=== PATIENT | male | born 1955 | race Caucasian/White ===

== ENCOUNTER 2017-04-06 18:15 | Emergency (ER) | payer OTHER ==
[2017-04-06] MEDS ORDERED: NITRO-BID 2% UD PACKETS TOP ONE (18:21)
--- NOTE | 2017-04-06 18:28 | ERPHSYRPT ---
- History of Present Illness Time Seen by Provider: 04/06/17 18:21 Historian: patient, EMS (gave 4 baby [facility] [employer]) Physician History: CC: chest pain Hx: 61 y/o patient of Dr Vinson with chest pain, aching and squeezing in left chest radiating to the left arm which started at work in heat this afternoon. He took 3NTG and then felt dizzy. EMS was called and gave asa. He had chest pain for the first time last week saw Dr Vinson, and is scheduled for cardiac evaluation per Dr Schaefer next week. No hx of heart disease. He has hx of high chol and strong fam hx of CAD. Pain now mostly gone. No recent bleeding. No viagra or sexual medication. Timing/Duration: today Severity of Pain-Max: moderate Severity of Pain-Current: moderate Nitro Today/Relief: 0.4 mg x 3, provided at home Aspirin Treatment Today: 81 mg x 4, provided by EMS Allergies/Adverse Reactions: latex Allergy (Verified 04/06/17 18:27) peanut Allergy (Verified 04/06/17 18:27) amoxicillin Adverse Reaction (Verified 04/06/17 18:27) Home Medications: Isosorbide Mononitrate 30 mg [Imdur 30 MG] 30 mg PO DAILY 04/06/17 [History ] Levothyroxine Sodium [Synthroid] 137 mcg PO DAILY 04/06/17 [History] Nitroglycerin 12 gm TL UD 04/06/17 [History] - Review of Systems Constitutional: No Symptoms Eyes: No Symptoms Ears, Nose, & Throat: No Symptoms Respiratory: Dyspnea (with chest pain), No Cough Cardiac: Chest Pain, Edema (ankles), No Syncope Abdominal/Gastrointestinal: No Abdominal Pain, No Nausea, No Vomiting, No Diarrhea Skin: No Rash Neurological: Dizziness (after NTG), No Headache All Other Systems: Reviewed and Negative - Past Medical History Pertinent Past Medical History: Yes Cardiac History: High Cholesterol - Past Surgical History Past Surgical History: Yes Gastrointestinal: Cholecystectomy - Social History Patient Lives Alone: No Significant Family History: heart disease - Physical Exam General Appearance: alert Eye Exam: PERRL/EOMI Ears, Nose, Throat Exam: normal ENT inspection, moist mucous membranes Neck Exam: normal inspection, non-tender, supple Respiratory Exam: normal breath sounds, lungs clear, No respiratory distress Cardiovascular Exam: regular rate/rhythm, No murmur Gastrointestinal/Abdomen Exam: soft, No tenderness, No distention, No mass, No guarding Back Exam: normal inspection, normal range of motion Extremity Exam: normal inspection, normal range of motion Neurologic Exam: alert, oriented x 3, cooperative, sensation nml, No motor deficits Skin Exam: warm, dry, No rash - Course Nursing assessment & vital signs reviewed: Yes EKG Interpreted by Me: RATE (60), Sinus Rhythm, NORMAL AXIS, NORMAL INTERVALS ( [id number]), NORMAL QRS, Ischemic ST-T changes (ST depression and T wave inversion lateral leads. 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 Care 04/06/17 18:21 Active EKG-ER Only STAT Care 04/06/17 18:21 Active IV Insertion STAT Care 04/06/17 18:21 Active Pulse Oximetry (ED) STAT Care 04/06/17 18:21 Active CHEST 1 VIEW (PORTABLE) Stat Exams 04/06/17 18:22 Taken CBC W DIFF Stat Lab 04/06/17 18:32 Completed CMP Stat Lab 04/06/17 18:32 Completed PROTIME WITH INR Stat Lab 04/06/17 18:32 Completed PTT Stat Lab 04/06/17 18:32 Completed TROPONIN Q3H Lab 04/06/17 18:37 Completed TROPONIN Q3H Lab 04/06/17 21:30 Ordered TROPONIN Q3H Lab 04/07/17 00:30 Ordered TROPONIN Q3H Lab 04/07/17 03:30 Ordered TROPONIN Q3H Lab 04/07/17 06:30 Ordered Medication Summary Generic Name Dose Route Start Last Admin Trade Name Freq PRN Reason Stop Dose Admin Sodium Chloride 1,000 mls @ 100 mls/hr 04/06/17 18:30 04/06/17 18:33 Sodium Chloride 0.9% 1000 Ml IV 05/06/17 18:29 100 mls/hr .Q10H LENO Administration Discontinued Medications Generic Name Dose Route Start Last Admin Trade Name Freq PRN Reason Stop Dose Admin Nitroglycerin 1 gm 04/06/17 18:21 04/06/17 18:33 Nitro-Bid 2% Ud Packets TOP 04/06/17 18:22 1 gm STAT ONE Administration Nitroglycerin Confirm 04/06/17 18:32 Nitro-Bid 2% Ud Packets Administered 04/06/17 18:33 Dose 1 gm .ROUTE .STK-MED ONE Lab/Rad Data: Laboratory Result Diagrams 04/06/17 18:32 04/06/17 18:32 Laboratory Results 04/06/17 04/06/17 04/06/17 Range/Units 18:37 18:32 18:32 WBC (4.0-10.5) K/mm3 RBC (4.1-5.6) M/mm3 Hgb (12.5-18.0) gm/dl Hct (42-50) % MCV (78-100) fl MCH (26-32) pg MCHC (32-36) g/dl RDW (11.5-14.0) % Plt Count (150-450) K/mm3 MPV (6-9.5) fl Gran % (36.0-66.0) % Lymphocytes % (24.0-44.0) % Monocytes % (0.0-12.0) % Eosinophils % (0.00-5.0) % Basophils % (0.0-0.4) % Basophils # (0-0.4) INR 1.00 (0.8-3.0) APTT 28.6 (24.1-36.1) SECONDS Sodium 140 (136-145) mEq/L Potassium 3.7 (3.5-5.1) mEq/L Chloride 106 (98-107) mEq/L Carbon Dioxide 25.3 (21-32) mEq/L Anion Gap 12.6 (5-15) MEQ/L BUN 22 H (9-20) mg/dL Creatinine 1.24 (0.55-1.30) mg/dl Estimated GFR > 60 ML/MIN Glucose 102 (70-110) MG/DL Calcium 9.2 (8.5-10.1) mg/dL Total Bilirubin 0.3 (0.2-1.0) mg/dL AST 18 (15-37) U/L ALT 22 (12-78) U/L Alkaline Phosphatase 72 (46-116) U/L Troponin I < 0.017 (0.000-0.056) ng/ml Serum Total Protein 7.2 (6.4-8.2) gm/dL Albumin 3.3 L (3.4-5.0) g/dL 04/06/17 Range/Units 18:32 WBC 8.7 (4.0-10.5) K/mm3 RBC 4.25 (4.1-5.6) M/mm3 Hgb 13.6 (12.5-18.0) gm/dl Hct 40.7 L (42-50) % MCV 95.8 (78-100) fl MCH 32.0 (26-32) pg MCHC 33.4 (32-36) g/dl RDW 13.9 (11.5-14.0) % Plt Count 246 (150-450) K/mm3 MPV 9.5 (6-9.5) fl Gran % 65.0 (36.0-66.0) % Lymphocytes % 22.2 L (24.0-44.0) % Monocytes % 10.2 (0.0-12.0) % Eosinophils % 2.3 (0.00-5.0) % Basophils % 0.3 (0.0-0.4) % Basophils # 0.03 (0-0.4) INR (0.8-3.0) APTT (24.1-36.1) SECONDS Sodium (136-145) mEq/L Potassium (3.5-5.1) mEq/L Chloride (98-107) mEq/L Carbon Dioxide (21-32) mEq/L Anion Gap (5-15) MEQ/L BUN (9-20) mg/dL Creatinine (0.55-1.30) mg/dl Estimated GFR ML/MIN Glucose (70-110) MG/DL Calcium (8.5-10.1) mg/dL Total Bilirubin (0.2-1.0) mg/dL AST (15-37) U/L ALT (12-78) U/L Alkaline Phosphatase (46-116) U/L Troponin I (0.000-0.056) ng/ml Serum Total Protein (6.4-8.2) gm/dL Albumin (3.4-5.0) g/dL - Progress Progress Note: 04/06/17 19:54 Pain better. NTG paste on. BP ok. Called Dr Deena Ko covering for Dr Vinson. She advised lovenox and transfer [facility] where he can have formal cardiac consultation. Pt agreeable. Counseled pt/family regarding: lab results, diagnosis, need for follow-up, rad results - Departure Time of Disposition: 19:56 Departure Disposition: Transfer ([facility]) Clinical Impression: Chest pain, rule out acute myocardial infarction, Unstable angina Condition: Fair Critical Care Time: No Referrals: REDD VINSON MD [Primary Care Provider] -
[2017-04-06] MEDS ORDERED: Sodium Chloride 0.9% 1000 ML 1,000 ML IV SCH (18:30)
[2017-04-06] MEDS ORDERED: Sodium Chloride 0.9% 1000 ML 1,000 ML ONE (18:32)
[2017-04-06] MEDS ORDERED: NITRO-BID 2% UD PACKETS ONE (18:32)
[2017-04-06 18:36] LABS: BASOPHIL % 0.3 % (0.0-0.4); Eosinophil % 2.3 % (0.00-5.0); Lymphocytes % 22.2 % (24.0-44.0); Mean Cell Volume 95.8 fl (78-100); Mean Platelet Volume 9.5 fl (6-9.5); Monocytes % 10.2 % (0.0-12.0); Platelet Count 246 K/mm3 (150-450); Red Blood Count 4.25 M/mm3 (4.1-5.6); Red Cell Distribution Width 13.9 % (11.5-14.0); White Blood Count 8.7 K/mm3 (4.0-10.5)
[2017-04-06 18:56] LABS: ALBUMIN 3.3 g/dL (3.4-5.0); ALKALINE PHOSPHATASE 72 U/L (46-116); ANION GAP 12.6 MEQ/L (5-15); BILIRUBIN,TOTAL 0.3 mg/dL (0.2-1.0); BLOOD UREA NITROGEN 22 mg/dL (9-20); CHLORIDE 106 mEq/L (98-107); Carbon Dioxide 25.3 mEq/L (21-32); Glucose 102 MG/DL (70-110); Potassium 3.7 mEq/L (3.5-5.1); SGOT/AST 18 U/L (15-37); SGPT/ALT 22 U/L (12-78); SODIUM 140 mEq/L (136-145); Total Protein 7.2 gm/dL (6.4-8.2)
[2017-04-06 19:11] LABS: PROTIME 11.2 SECONDS (8.83-12.87)
[2017-04-06 19:14] LABS: PTT 28.6 SECONDS (24.1-36.1)
[2017-04-06] MEDS ORDERED: ENOXAPARIN SODIUM SQ SCH (20:00)
[2017-04-06 20:41] VITALS: PULSE 64
[2017-04-06] MEDS ORDERED: ENOXAPARIN SODIUM SQ ONE (21:36)
[2017-04-06 21:44] VITALS: BP 136/84; O2SAT 98
--- NOTE | 2017-04-07 08:05 | XRAY ---
Indication: Chest pain. Comparison: July 26, 2007. Portable chest remains clear. Heart is not enlarged. Vascularity normal. Bony thorax intact again with mild degenerative changes. Impression: Stable nonacute chest.
== END 2017-04-06 21:50 | disposition short-term general hospital (02) ==
LOC: ED 18:15
DX: R07.89 Other chest pain (principal); I20.9 Angina pectoris, unspecified; R42 Dizziness and giddiness; E78.00 Pure hypercholesterolemia, unspecified; Z79.899 Other long term (current) drug therapy
CPT/HCPCS: 36415; 71010; 80053; 84484; 85025; 85610; 85730; 93005; 93041; 96360; 96361; 96372; 99285; J1650; A9270-GY